=== PATIENT | male | born 2000 | race Caucasian/White ===

== ENCOUNTER 2025-01-30 23:32 | Emergency (ER) | payer SELFPAY ==
[~2025-01-30] VITALS: Ht 175.3 cm; Wt 73.0 kg
[2025-01-30 23:44] VITALS: O2SAT 98
[2025-01-31 01:06] LABS: BASOPHILS % 0.1 % (0.0-2.0); EOSINOPHILS % 0.1 % (0.0-5.0); HEMOGLOBIN. 14.5 g/dL (14.0-18.0); LYMPHOCYTES % 7.8 % (20.0-50.0); MEAN CORPUSCULAR HEMOGLOBIN 30.1 pg (28.0-32.0); MEAN CORPUSCULAR HGB CONC 32.9 g/dL (31.0-37.0); MEAN CORPUSCULAR VOLUME 91.3 fL (80.0-94.0); MEAN PLATELET VOLUME 8.3 fl (7.4-10.4); MONOCYTES % 3.4 % (2.0-8.0); NEUTROPHILS % 88.6 % (40.0-76.0); PLATELET 232 x1000/uL (130-400); RED BLOOD CELL COUNT 4.82 mill/uL (4.7-6.1); WHITE BLOOD COUNT 16.8 x1000/uL (4.5-11.0)
[2025-01-31 01:15] LABS: CHLORIDE 108 mEq/L (98-107); POTASSIUM 3.6 mEq/L (3.5-5.1); SODIUM 142 mEq/L (136-145)
[2025-01-31 01:16] LABS: CARBON DIOXIDE 24 mEq/L (21-32)
[2025-01-31 01:17] LABS: CALCIUM 7.8 mg/dL (8.7-10.4)
[2025-01-31 01:21] LABS: CREATININE 0.7 mg/dL (0.6-1.3); GLUCOSE 120 mg/dL (70-105); UREA NITROGEN BLOOD 11 mg/dL (9-23)
[2025-01-31 01:22] LABS: ETHANOL BLOOD 200 mg/dL (<10)
[2025-01-31] MEDS ORDERED: ONDA4TAB50 MT (02:04)
[2025-01-31 02:30] VITALS: BP 120/81; PULSE 91; RESP 14; TEMP 37; O2SAT 98
== END 2025-01-31 02:42 | disposition home or self-care (01) ==
LOC: ER 23:32
DX: F10.129 Alcohol abuse with intoxication, unspecified (principal); Z00.00 Encounter for general adult medical examination without abnormal findings; Y90.7 Blood alcohol level of 200-239 mg/100 ml
CPT/HCPCS: 36415; 80048; 80320; 85025; 99283; G0480